=== PATIENT | male | born 1970 | race African-American/Black ===

== ENCOUNTER 2017-11-03 14:10 | Emergency (ER) | payer OTHER | END 2017-11-03 14:44 | disposition home or self-care (01) | LOC: ER 14:10 | DX: M54.9 Dorsalgia, unspecified (principal); I10 Essential (primary) hypertension; V43.52XA Car driver injured in collision with other type car in traffic accident, initial encounter; Y93.I9 Activity, other involving external motion; Y92.410 Unspecified street and highway as the place of occurrence of the external cause; Y99.8 Other external cause status | CPT/HCPCS: 99281 ==

== ENCOUNTER 2020-04-29 16:07 | Emergency (ER) | payer OTHER ==
[~2020-04-29] VITALS: Ht 170.2 cm; Wt 105.0 kg
[~2020-04-29 16:07] MED LIST: AMLO1TAB95 PO; HYDR-3164 PO; NAPR-682 PO; SULF1TAB24 PO
[2020-04-29 18:37] VITALS: BP 164/91
[2020-04-29] MEDS ORDERED: METH4TAB2 PO (18:53)
[2020-04-29] MEDS ORDERED: CYCL10TA2 PO (18:53)
[2020-04-29] MEDS ORDERED: DICL50TA2 PO ×2 (18:53→19:32)
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
== END 2020-04-29 19:39 | disposition home or self-care (01) ==
LOC: ER 16:07
DX: M79.622 Pain in left upper arm (principal); M54.5 Low back pain; G89.11 Acute pain due to trauma; I10 Essential (primary) hypertension; V49.49XA Driver injured in collision with other motor vehicles in traffic accident, initial encounter; Y92.488 Other paved roadways as the place of occurrence of the external cause; Y93.89 Activity, other specified; Y99.8 Other external cause status
CPT/HCPCS: 99283